=== PATIENT | female | born 1950 ===

== ENCOUNTER 2016-10-07 02:41 | Emergency (ER) | payer OTHER, MEDICARE ==
[2016-10-07 03:12] VITALS: BP 174/81; PULSE 81; RESP 16; TEMP 97.9; O2SAT 98
--- NOTE | 2016-10-07 04:00 | CT ---
EXAM: CT Head Without Intravenous Contrast CLINICAL HISTORY: 66 years old, female; Injury or trauma; Fall; Initial encounter; Blunt trauma (contusions or hematomas); Additional info: Hed injury with dinzzess and hematoma TECHNIQUE: Axial computed tomography images of the head/brain without intravenous contrast. This CT exam was performed using one or more of the following dose reduction techniques: automated exposure control, adjustment of the mA and/or kV according to patient size, and/or use of iterative reconstruction technique. Coronal and sagittal reformatted images were created and reviewed. COMPARISON: CT - HEAD W/O CONTRAST 08/01/2016 5:31:27 PM FINDINGS: Brain: Minimal atrophy. No intracranial hemorrhage. No mass. No edema. Ventricles: No hydrocephalus. Bones/joints: No acute fracture. Soft tissues: Mild LEFT frontal soft tissue swelling. Vasculature: Mild atherosclerotic disease of intracranial arteries. Sinuses: Minimal mucosal thickening of maxillary sinuses. Mastoid air cells: No mastoid effusion. Orbits: Unremarkable as visualized. IMPRESSION: 1. No intracranial hemorrhage. 2. Incidental/non-acute findings are described above.
--- NOTE | 2016-10-07 04:06 | ED PDOC ---
HPI: Trauma/Fall - HPI Time Seen by Provider: 10/07/16 03:41 Chief Complaint (Nursing): Trauma Chief Complaint (Provider): head injury History Per: Patient History/Exam Limitations: no limitations Additional Complaint(s): 66yo F suffered head injury this AM while taking garbage out and saw a skunk , became scared and fell on floor injuring head and sustained hematoma to frontal scalp also injured knee. admits to dizziness after fall but no OC, vision changes/loss, ue/le weakness or numbness, change in mentation speech or gait. Past Medical History Reviewed: Historical Data, Nursing Documentation, Vital Signs Vital Signs: Last Vital Signs Temp 97.9 F 10/07/16 03:08 Pulse 81 10/07/16 03:08 Resp 16 10/07/16 03:08 BP 174/81 H 10/07/16 03:08 Pulse Ox 98 10/07/16 03:08 - Medical History PMH: HTN, Hyperthyroidism, Hypothyroidism - Family History Family History: States: Unknown Family Hx - Home Medications Home Medications: Ambulatory Orders Medication Instructions Recorded Ibuprofen [Motrin Tab] 600 mg PO Q8 PRN 08/01/16 Clindamycin [Cleocin] 300 mg PO TID #30 cap 08/02/16 Methylprednisolone [Medrol Dose 4 mg PO ASDIR #21 mg 08/02/16 Pack (21 tabs)] Methimazole 10 mg PO DAILY 08/03/16 amLODIPine [Norvasc] 5 mg PO DAILY 08/03/16 - Allergies Allergies/Adverse Reactions: Allergies Allergy/AdvReac Type Severity Reaction Status Date / Time No Known Allergies Allergy Verified 10/07/16 03:08 Review of Systems ROS Statement: Except As Marked, All Systems Reviewed And Found Negative Constitutional: Negative for: Weakness Cardiovascular: Negative for: Chest Pain, Palpitations Respiratory: Negative for: Cough, Shortness of Breath Gastrointestinal: Negative for: Nausea, Vomiting, Abdominal Pain Neurological: Positive for: Dizziness. Negative for: Weakness, Numbness, Incoordination, Change in Speech, Confusion, Seizures, Altered Mental Status, Headache Physical Exam - Reviewed Nursing Documentation Reviewed: Yes Vital Signs Reviewed: Yes - Physical Exam Appears: Positive for: Non-toxic, No Acute Distress Head Exam: Positive for: NORMAL INSPECTION, NORMOCEPHALIC. 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 Negative for: Motor/Sensory Deficits - ECG O2 Sat by Pulse Oximetry: 98 - Progress ED Course And Treament: head ct: Brain: Minimal atrophy. No intracranial hemorrhage. No mass. No edema. Ventricles: No hydrocephalus. Bones/joints: No acute fracture. Soft tissues: Mild LEFT frontal soft tissue swelling. Vasculature: Mild atherosclerotic disease of intracranial arteries. Sinuses: Minimal mucosal thickening of maxillary sinuses. Mastoid air cells: No mastoid effusion. Orbits: Unremarkable as visualized. IMPRESSION: 1. No intracranial hemorrhage. 2. Incidental/non-acute findings are described above. Medical Decision Making Medical Decision Making: pt with head injury no bleed evident on US pt advised to use ice to help with swelling on head and ice. Disposition - Clinical Impression Clinical Impression: Head injury - Patient ED Disposition Is Patient to be Admitted: No Counseled Patient/Family Regarding: Studies Performed, Diagnosis, Need For Followup - Disposition Disposition: Routine/Home Disposition Time: 04:19 Condition: STABLE Instructions: Scalp Contusion in Adults (ED)
== END 2016-10-07 04:51 | disposition home or self-care (01) ==
LOC: H.ER 02:41
DX: S09.90XA Unspecified injury of head, initial encounter (principal); W19.XXXA Unspecified fall, initial encounter; Y92.410 Unspecified street and highway as the place of occurrence of the external cause; E03.9 Hypothyroidism, unspecified; E05.90 Thyrotoxicosis, unspecified without thyrotoxic crisis or storm; I10 Essential (primary) hypertension